=== PATIENT | female | born 1985 ===

== ENCOUNTER → 2018-05-17 | Outpatient (REF) | payer OTHER ==
[2018-05-17 18:17] LABS: BLOOD UREA NITROGEN 15 MG/DL (7-18)
[2018-05-17 18:17] LABS: CREATININE FOR GFR 0.68 MG/DL (0.55-1.30); GLOMERULAR FILTRATION RATE > 60.0 (>60)
== END ==
LOC: M LABDRAW1 11:30
DX: M51.27 Other intervertebral disc displacement, lumbosacral region (principal)